=== PATIENT | female | born 1985 | race Caucasian/White ===

== ENCOUNTER → 2024-07-29 | Outpatient (REF) | payer OTHER ==
[2024-07-29 18:21] LABS: Trichomonas vaginalis (AMP) NOT DETECTED (NEGATIVE)
[2024-07-29 18:45] LABS: GC DNA AMPLIFICATION NEGATIVE (NEGATIVE)
== END ==
LOC: M LAB REF 16:26
PROVIDERS: ATTEND Physician Assistant
DX: Z11.9 Encounter for screening for infectious and parasitic diseases, unspecified (principal)